=== PATIENT | male | born 1980 | race African-American/Black ===

== ENCOUNTER 2016-11-14 14:52 | Emergency (ER) | payer MEDICAID ==
[~2016-11-14] VITALS: Ht 185.4 cm; Wt 99.0 kg
[~2016-11-14 14:52] MED LIST: ZOFRAN
[2016-11-14 16:08] VITALS: BP 134/77
== END 2016-11-14 20:00 | disposition left against medical advice (07) ==
LOC: ER 14:53
DX: R42 Dizziness and giddiness (principal); R11.0 Nausea; R06.02 Shortness of breath; J45.909 Unspecified asthma, uncomplicated; Z87.891 Personal history of nicotine dependence; Z98.890 Other specified postprocedural states; Z88.0 Allergy status to penicillin